=== PATIENT | female | born 1980 | race Caucasian/White ===

== ENCOUNTER 2017-08-16 13:52 | Emergency (ER) | payer BC, OTHER ==
--- NOTE | 2017-08-16 15:46 | EDM.PDOC ---
ED HPI GENERAL MEDICAL PROBLEM - General Chief Complaint: Gastrointestinal Problem Stated Complaint: PT SPOKE TO NURSE Time Seen by Provider: 08/16/17 14:31 Source of Information: Reports: Patient History Limitations: Reports: No Limitations - History of Present Illness INITIAL COMMENTS - FREE TEXT/NARRATIVE: HISTORY AND PHYSICAL: History of present illness: Patient is a 37-year-old female who presents to the emergency room complaints of constipation 2 weeks. She states that she has taken MiraLAX over-the- counter 1 capful for the past 3 days. This morning she took a Dulcolax suppository and did not have any results. Shortly after she gave herself an enema without any results. He denies any recent changes in her diet. States she is eating and drinking appropriately. Denies any abdominal pain, nausea. No previous history of constipation or diarrhea. Denies any urinary symptoms such as dysuria or blood in her urine. Denies any fever or chills. Denies any chance of . Review of systems: As per history of present illness and below otherwise all systems reviewed and negative. Past medical history: As per history of present illness and as reviewed below otherwise noncontributory. Surgical history: As per history of present illness and as reviewed below otherwise noncontributory. Social history: No reported history of drug or alcohol abuse. Family history: As per history of present illness and as reviewed below otherwise noncontributory. Physical exam: HEENT: Atraumatic, normocephalic, pupils reactive, negative for conjunctival pallor or scleral icterus, mucous membranes moist, throat clear, neck supple, nontender, trachea midline. Lungs: Clear to auscultation, breath sounds equal bilaterally, chest nontender. Heart: S1S2, regular rate and rhythm Abdomen: Soft, nondistended, nontender. Negative for masses or hepatosplenomegaly. Negative for costovertebral tenderness. Pelvis: Stable nontender. Genitourinary: Deferred. Rectal: Deferred. Extremities: Atraumatic, negative for cords or calf pain. Neurovascular unremarkable. Neuro: Awake, alert, oriented. Cranial nerves II through XII unremarkable. Cerebellum unremarkable. Motor and sensory unremarkable throughout. Exam nonfocal. Her abdomen is soft and nontender. She has no fever or chills. X-ray shows nonspecific bowel gas pattern without obstruction or ileus. There is some stool noted to the left but not significant for constipation. We discussed using mag citrate at home for bowel relief. She'll use one half bottle now, if no results may drink the rest of the bottle within the hour. Instructed her to follow up with her primary caregiver in the next 1-2 days. Return to the ED as needed and as discussed. Diagnostics: Acute abdominal series Therapeutics: [] Impression: Constipation Plan: 1. X-ray shows no obstruction or ileus. There is a moderate amount of stool in the left, but no significant constipation. Please take the magnesium citrate, half of a bottle now and drink the rest of the bottle if no results within the hour. 2. Drink plenty of fluids and eat a well-balanced diet. 3. Follow up with her primary caregiver in the next 1-2 days. Return to the ED as needed and as discussed. Definitive disposition and diagnosis as appropriate pending reevaluation and review of above. Duration: Week(s): Location: Reports: Abdomen left lower abdominal Pain Score (Numeric/FACES): 3 - Related Data Allergies Allergy/AdvReac Type Severity Reaction Status Date / Time No Known Allergies Allergy Verified 08/16/17 14:20 Home Meds: Home Meds . [No Known Home Meds] 08/16/17 [History] Past Medical History - Past Health History Medical/Surgical History: Denies Medical/Surgical History Other Respiratory History: pt reports no worsening of asthma with -on no medication - Past Surgical History Other HEENT Surgeries/Procedures: wisdom teeth removed Social & Family History - Family History Family Medical History: Noncontributory - Tobacco Use Smoking Status *Q: Never Smoker - Caffeine Use Caffeine Use: Reports: None - Recreational Drug Use Recreational Drug Use: No ED ROS GENERAL - Review of Systems Review Of Systems: ROS reveals no pertinent complaints other than HPI. ED EXAM, GI/ABD - Physical Exam Exam: See Below (See dictation) Course - Vital Signs Last Recorded V/S: Last Vital Signs Temp 97.0 F 08/16/17 14:21 Pulse 76 08/16/17 14:21 Resp 18 08/16/17 14:21 BP 129/81 08/16/17 14:21 Pulse Ox 100 08/16/17 14:21 - Orders/Labs/Meds Orders: Active Orders 24 hr Category Date Time Status Abdomen 2V AP Flat Upright [CR] Stat Exams 08/16/17 14:41 Taken Departure - Departure Time of Disposition: 15:45 Disposition: Home, Self-Care 01 Clinical Impression: Constipation - Discharge Information Instructions: Constipation, Adult, [id number] Referrals: PCP,None [Primary Care Provider] - Additional Instructions: My general discharge The following information is given to patients seen in the emergency department who are being discharged to home. This information is to outline your options for follow-up care. We provide all patients seen in our emergency department with a follow-up referral. The need for follow-up, as well as the timing and circumstances, are variable depending upon the specifics of your emergency department visit. If you don't have a primary care physician on staff, we will provide you with a referral. We always advise you to contact your personal physician following an emergency department visit to inform them of the circumstance of the visit and for follow-up with them and/or the need for any referrals to a consulting specialist. The emergency department will also refer you to a specialist when appropriate. This referral assures that you have the opportunity for follow-up care with a specialist. All of these measure are taken in an effort to provide you with optimal care, which includes your follow-up. Under all circumstances we always encourage you to contact your private physician who remains a resource for coordinating your care. When calling for follow-up care, please make the office aware that this follow-up is from your recent emergency room visit. If for any reason you are refused follow-up, please contact the [facility] Emergency Department at and asked to speak to the emergency department charge nurse. [facility] [address] [place] [id number] 1. X-ray shows no obstruction or ileus. There is a moderate amount of stool in the left, but no significant constipation. Please take the magnesium citrate, half of a bottle now and drink the rest of the bottle if no results within the hour. 2. Drink plenty of fluids and eat a well-balanced diet. 3. Follow up with her primary caregiver in the next 1-2 days. Return to the ED as needed and as discussed. - My Orders Last 24 Hours: My Active Orders 08/16/17 14:41 Abdomen 2V AP Flat Upright [CR] Stat - Assessment/Plan Last 24 Hours: My Active Orders 08/16/17 14:41 Abdomen 2V AP Flat Upright [CR] Stat
[2017-08-16 16:19] VITALS: BP 119/79
--- NOTE | 2017-08-17 14:29 | CR ---
EXAM DATE: 08/16/17 PATIENT'S AGE: 37 Patient: ANASTACIO BLEDSOE Facility: [place], [place] Site . Site : [id number] Study: XRay Abdomen [id number]/[id number] 3:19:35 PM Ordering Physician: Doctor Galindo Final Report: INDICATION: Constipation. TECHNIQUE: Flat and upright views of the abdomen and pelvis. FINDINGS: No free air on the upright image. Clear included lung bases. Nonspecific bowel gas pattern without obstruction or ileus. No significant colonic constipation. No radiodense urinary tract calculi. IMPRESSION: Nonspecific bowel gas pattern without obstruction or ileus. No evidence for any significant colonic constipation. Dictated by Harsh Bowie MD @ 08/16/2017 3:26:03 PM Dictated by: Harsh Bowie MD @ 08/16/2017 15:26:25 (Electronic Signature) Report Signed by Proxy. CHAUNCEY
== END 2017-08-16 16:03 | disposition home or self-care (01) ==
LOC: MW.ED 13:52
DX: K59.00 Constipation, unspecified (principal)
CPT/HCPCS: 74019; 74019-26; 99283